=== PATIENT | female | born 1970 | race Caucasian/White ===

== ENCOUNTER 2021-02-16 05:25 | Inpatient (IN) | payer MEDICAID ==
[~2021-02-16] VITALS: Ht 167.6 cm; Wt 87.7 kg
[2021-02-16 05:59] LABS: BASOPHILS % 0.5 % (0.0-2.0); HEMATOCRIT. 36.8 % (36.0-48.0); HEMOGLOBIN. 11.7 g/dL (12.0-16.0); LYMPHOCYTES % 20.9 % (20.0-50.0); MEAN CORPUSCULAR HEMOGLOBIN 27.3 pg (28.0-32.0); MEAN CORPUSCULAR VOLUME 85.9 fL (81.0-99.0); MONOCYTES % 5.2 % (2.0-8.0); NEUTROPHILS % 72.4 % (40.0-76.0); PLATELET 283 x1000/uL (130-400); RED BLOOD CELL COUNT 4.28 mill/uL (4.2-5.4); RED CELL DISTRIBUTION WIDTH 18.5 % (11.6-14.6)
[2021-02-16 06:02] LABS: CHLORIDE 108 mEq/L (98-107)
[2021-02-16] MEDS ORDERED: FUROSEMIDE 40MG/4ML VIAL IVP ONE (07:00)
[2021-02-16] MEDS ORDERED: IOHEXOL-350 100 ML BOTTLE ONE (07:06)
[2021-02-16] MEDS ORDERED: IPRATROPIUM/ALBUTEROL 0.5-3(2.5)MG/3ML NEB NEB PRN (10:45)
[2021-02-16] MEDS ORDERED: GUAIFENESIN 200MG/10ML SUGAR FREE UDC PO PRN (10:45)
[2021-02-16] MEDS ORDERED: HYDROCODONE/ACETAMINOPHEN 5/325MG TABLET PO PRN (10:45)
[2021-02-16] MEDS ORDERED: CLONIDINE 0.1MG TABLET PO PRN (10:45)
[2021-02-16] MEDS ORDERED: NA PHOS,M-B/NA PHOS,DI-BA ENEMA 118ML PR PRN (10:45)
[2021-02-16] MEDS ORDERED: ACETAMINOPHEN 325MG TABLET PO PRN (10:45)
[2021-02-16] MEDS ORDERED: MORPHINE SULFATE 2 MG/ML CPJ (NOT FOR IM USE) IV PRN (10:45)
[2021-02-16] MEDS ORDERED: ONDANSETRON HCL 4MG/2ML INJ IV PRN (10:45)
[2021-02-16] MEDS ORDERED: MAGNESIUM/ALUMINUM HYDROXIDE/SIMETHICONE 30ML UDC PO PRN (10:45)
[2021-02-16] MEDS ORDERED: DOCUSATE SODIUM 100MG CAPSULE PO PRN (10:45)
[2021-02-16] MEDS ORDERED: DIPHENHYDRAMINE 50MG/ML VIAL IV PRN (10:45)
[2021-02-16] MEDS ORDERED: LORAZEPAM 2MG/ML CPJ IV PRN (10:45)
[2021-02-16] MEDS ORDERED: NALOXONE HCL 0.4MG/ML VIAL IV PRN (11:00)
[2021-02-16 13:02] LABS: CHLORIDE 106 mEq/L (98-107)
[2021-02-16] MEDS: ENOXAPARIN 40MG/0.4ML SYR SUBCUT SCH (15:56)
[2021-02-16] MEDS: FUROSEMIDE 40MG/4ML VIAL IV SCH (17:24)
[2021-02-16] MEDS ORDERED: INFLUENZA VACCINE 05/PF 0.5 ML SYRINGE IM ONE (19:00)
[2021-02-16 19:30] VITALS: BP 145/78
[2021-02-16 20:00] VITALS: BP 107/70
[2021-02-16] MEDS ORDERED: PNEUMOCOCCAL 23-VAL P-SAC VAC 0.5 ML IM ONE (21:45)
[2021-02-17] VITALS (7 sets, daily range): BP systolic 114–130; BP diastolic 62–79
[2021-02-17 06:43] LABS: BASOPHILS % 0.8 % (0.0-2.0); EOSINOPHILS % 3.7 % (0.0-5.0); HEMATOCRIT. 37.1 % (36.0-48.0); HEMOGLOBIN. 11.8 g/dL (12.0-16.0); LYMPHOCYTES % 33.8 % (20.0-50.0); MEAN CORPUSCULAR HEMOGLOBIN 27.5 pg (28.0-32.0); MEAN CORPUSCULAR VOLUME 86.2 fL (81.0-99.0); MEAN PLATELET VOLUME 8.3 fl (7.4-10.4); MONOCYTES % 6.9 % (2.0-8.0); NEUTROPHILS % 54.8 % (40.0-76.0); PLATELET 259 x1000/uL (130-400); RED CELL DISTRIBUTION WIDTH 18.3 % (11.6-14.6)
[2021-02-17 07:14] LABS: CHLORIDE 106 mEq/L (98-107)
[2021-02-17] MEDS: FUROSEMIDE 40MG/4ML VIAL IV SCH ×2 (07:19→17:17)
[2021-02-17] MEDS ORDERED: PNEUMOCOCCAL 23-VAL P-SAC VAC 0.5 ML IM ONE (09:00)
[2021-02-17] MEDS ORDERED: POTASSIUM CHLORIDE 20MEQ TABLET SR PO NR (09:15)
[2021-02-17] MEDS: ASPIRIN 81MG EC TABLET PO SCH (09:34)
[2021-02-17] MEDS: ENOXAPARIN 40MG/0.4ML SYR SUBCUT SCH (09:53)
[2021-02-17] MEDS: SPIRONOLACTONE 25MG TABLET PO SCH (13:22)
[2021-02-17 21:21] LABS: METHADONE URINE SCREEN NEGATIVE (NEGATIVE); OPIATES URINE SCREEN NEGATIVE (NEGATIVE)
[2021-02-17 21:22] LABS: *AMPHETAMINES SCREEN URINE NEGATIVE (NEGATIVE); *BARBITURATES SCREEN URINE NEGATIVE (NEGATIVE); *BENZODIAZEPINES SCREEN URINE NEGATIVE (NEGATIVE); *COCAINE SCREEN URINE NEGATIVE (NEGATIVE); CANNABINOID URINE SCREEN PRESUMTIVE POSITIVE (NEGATIVE); PHENCYCLIDINE URINE SCREEN NEGATIVE (NEGATIVE)
[2021-02-18] VITALS: BP 126/80
[2021-02-18 04:00] VITALS: BP 105/55
[2021-02-18] MEDS: FUROSEMIDE 40MG/4ML VIAL IV SCH ×2 (05:23→17:57)
[2021-02-18 07:04] LABS: BASOPHILS % 0.6 % (0.0-2.0); EOSINOPHILS % 4.6 % (0.0-5.0); HEMATOCRIT. 37.9 % (36.0-48.0); HEMOGLOBIN. 12.3 g/dL (12.0-16.0); MEAN CORPUSCULAR HEMOGLOBIN 27.6 pg (28.0-32.0); MEAN CORPUSCULAR VOLUME 85.2 fL (81.0-99.0); MEAN PLATELET VOLUME 8.1 fl (7.4-10.4); MONOCYTES % 6.9 % (2.0-8.0); NEUTROPHILS % 54.9 % (40.0-76.0); PLATELET 264 x1000/uL (130-400); RED BLOOD CELL COUNT 4.44 mill/uL (4.2-5.4); RED CELL DISTRIBUTION WIDTH 18.6 % (11.6-14.6)
[2021-02-18 07:25] LABS: CHLORIDE 101 mEq/L (98-107)
[2021-02-18 08:00] VITALS: BP 104/64
[2021-02-18] MEDS: ENOXAPARIN 40MG/0.4ML SYR SUBCUT SCH (09:40)
[2021-02-18] MEDS: SPIRONOLACTONE 25MG TABLET PO SCH (09:41)
[2021-02-18] MEDS: ASPIRIN 81MG EC TABLET PO SCH (09:41)
[2021-02-18 12:00] VITALS: BP 107/71
[2021-02-18 16:00] VITALS: BP 106/59
[2021-02-18 20:00] VITALS: BP 100/50
[2021-02-19] VITALS: BP 96/50
[2021-02-19 04:00] VITALS: BP 102/57
[2021-02-19 05:25] LABS: CHLORIDE 101 mEq/L (98-107)
[2021-02-19] MEDS: FUROSEMIDE 40MG/4ML VIAL IV SCH (06:02)
[2021-02-19 06:16] LABS: BASOPHILS % 0.7 % (0.0-2.0); EOSINOPHILS % 5.4 % (0.0-5.0); HEMATOCRIT. 40.6 % (36.0-48.0); HEMOGLOBIN. 13.2 g/dL (12.0-16.0); LYMPHOCYTES % 30.3 % (20.0-50.0); MEAN CORPUSCULAR HEMOGLOBIN 27.7 pg (28.0-32.0); MEAN CORPUSCULAR VOLUME 85.1 fL (81.0-99.0); MEAN PLATELET VOLUME 8.1 fl (7.4-10.4); MONOCYTES % 8.3 % (2.0-8.0); NEUTROPHILS % 55.3 % (40.0-76.0); PLATELET 289 x1000/uL (130-400); RED BLOOD CELL COUNT 4.77 mill/uL (4.2-5.4); RED CELL DISTRIBUTION WIDTH 18.2 % (11.6-14.6)
[2021-02-19 08:00] VITALS: BP 158/89
[2021-02-19] MEDS: ENOXAPARIN 40MG/0.4ML SYR SUBCUT SCH (08:30)
[2021-02-19] MEDS: ASPIRIN 81MG EC TABLET PO SCH (08:31)
[2021-02-19] MEDS: SPIRONOLACTONE 25MG TABLET PO SCH (08:31)
[2021-02-19] MEDS ORDERED: LOSARTAN POTASSIUM 50 MG TABLET PO SCH (10:30)
[2021-02-19 12:00] VITALS: BP 100/54
[2021-02-19 14:26] VITALS: BP 105/56
[2021-02-19 16:00] VITALS: BP 122/60
[2021-02-19] MEDS ORDERED: CARVEDILOL 3.125 MG TABLET PO SCH (21:00)
== END 2021-02-19 18:55 | disposition home or self-care (01) | DRG 194 ==
LOC: ER 05:25 → 7EST 08:48 → ENRESERV 16:01
PROVIDERS: ADMIT Internal Medicine; ATTEND Internal Medicine
DX: I13.0 Hypertensive heart and chronic kidney disease with heart failure and stage 1 through stage 4 chronic kidney disease, or unspecified chronic kidney disease (principal); J96.01 Acute respiratory failure with hypoxia; I21.A1 Myocardial infarction type 2; E44.0 Moderate protein-calorie malnutrition; I50.23 Acute on chronic systolic (congestive) heart failure; E87.6 Hypokalemia; F17.210 Nicotine dependence, cigarettes, uncomplicated; I25.10 Atherosclerotic heart disease of native coronary artery without angina pectoris; N18.9 Chronic kidney disease, unspecified; Z20.822 Contact with and (suspected) exposure to COVID-19; I42.9 Cardiomyopathy, unspecified; R74.01 Elevation of levels of liver transaminase levels; R79.89 Other specified abnormal findings of blood chemistry; Z28.3 Underimmunization status; Z68.31 Body mass index [BMI] 31.0-31.9, adult
CPT/HCPCS: 36415; 71045; 71275; 80048; 80053; 80305; 83880; 84484; 85025; 85379; 87426; 90732; 93005; 93306; 99285; J1200; J1650; J1940; J2060; Q9967

== ENCOUNTER 2021-04-20 21:26 | Inpatient (IN) | payer MEDICAID ==
[~2021-04-20] VITALS: Ht 162.6 cm; Wt 92.1 kg
[2021-04-20] MEDS ORDERED: ACETAMINOPHEN 325MG TABLET PO ONE (21:45)
[2021-04-20] MEDS ORDERED: GABAPENTIN 300MG CAPSULE PO ONE (21:45)
[2021-04-20 22:46] LABS: BASOPHILS % 0.5 % (0.0-2.0); EOSINOPHILS % 0.9 % (0.0-5.0); LYMPHOCYTES % 17.2 % (20.0-50.0); MEAN CORPUSCULAR HEMOGLOBIN 25.8 pg (28.0-32.0); MEAN CORPUSCULAR VOLUME 81.8 fL (81.0-99.0); MEAN PLATELET VOLUME 7.8 fl (7.4-10.4); MONOCYTES % 8.6 % (2.0-8.0); NEUTROPHILS % 72.8 % (40.0-76.0); PLATELET 251 x1000/uL (130-400); RED BLOOD CELL COUNT 4.65 mill/uL (4.2-5.4); RED CELL DISTRIBUTION WIDTH 17.9 % (11.6-14.6)
[2021-04-20 22:51] LABS: CHLORIDE 109 mEq/L (98-107)
[2021-04-20] MEDS ORDERED: FUROSEMIDE 40MG/4ML VIAL IVP NR (23:30)
[2021-04-21] MEDS ORDERED: LORAZEPAM 2MG/ML CPJ IV PRN (07:15)
[2021-04-21] MEDS ORDERED: HYDROCODONE/ACETAMINOPHEN 5/325MG TABLET PO PRN (07:15)
[2021-04-21] MEDS ORDERED: DIPHENHYDRAMINE 50MG/ML VIAL IV PRN (07:15)
[2021-04-21] MEDS ORDERED: CLONIDINE 0.1MG TABLET PO PRN (07:15)
[2021-04-21] MEDS ORDERED: HYDRALAZINE 20MG/ML VIAL IV PRN (07:15)
[2021-04-21] MEDS ORDERED: MORPHINE SULFATE 2 MG/ML CPJ (NOT FOR IM USE) IV PRN (07:15)
[2021-04-21] MEDS ORDERED: IPRATROPIUM/ALBUTEROL 0.5-3(2.5)MG/3ML NEB HHN PRN (07:15)
[2021-04-21] MEDS ORDERED: ONDANSETRON HCL 4MG/2ML INJ IV PRN (07:15)
[2021-04-21] MEDS ORDERED: DEXTROSE 50% WATER 50ML SYRINGE IV PRN (07:30)
[2021-04-21] MEDS ORDERED: NALOXONE HCL 0.4MG/ML VIAL IV PRN (08:30)
[2021-04-21] MEDS ORDERED: FUROSEMIDE 40MG/4ML VIAL IV SCH (09:00)
[2021-04-21] MEDS ORDERED: MAGNESIUM/ALUMINUM HYDROXIDE/SIMETHICONE 30ML UDC PO PRN (09:00)
[2021-04-21] MEDS ORDERED: ENOXAPARIN 40MG/0.4ML SYR SUBCUT SCH (09:00)
[2021-04-21] MEDS ORDERED: DOCUSATE SODIUM 100MG CAPSULE PO PRN (09:00)
[2021-04-21 10:16] VITALS: BP 126/98
[2021-04-21 10:19] VITALS: BP 126/98
[2021-04-21] MEDS: FUROSEMIDE 40MG/4ML VIAL IV SCH ×3 (11:00→17:39)
[2021-04-21] MEDS: BLOOD SUGAR DIAGNOSTIC STRIP TEST SCH ×3 (11:50→21:00)
[2021-04-21] MEDS: INSULIN LISPRO 100 UNITS/ML SUBCUT SCH ×3 (11:51→21:00)
[2021-04-21 15:56] LABS: CREATINE KINASE 52 IU/L (26-192)
[2021-04-21 15:57] LABS: CREATINE KINASE MB FRACTION < 1.0 ng/mL (0.5-3.6)
[2021-04-21 16:40] VITALS: BP 113/78
[2021-04-21] MEDS: IPRATROPIUM/ALBUTEROL 0.5-3(2.5)MG/3ML NEB HHN SCH (18:00)
[2021-04-21 20:00] VITALS: BP 115/71
[2021-04-21 22:00] VITALS: BP 99/53
[2021-04-21] MEDS: SODIUM CHLORIDE 0.9% INJ 3ML FLUSH IVF SCH (22:00)
[2021-04-21] MEDS: ENOXAPARIN 30MG/0.3ML SYR SUBCUT SCH (22:12)
[2021-04-21] MEDS: ACETAMINOPHEN 325MG TABLET PO PRN (22:13)
[2021-04-22] VITALS (7 sets, daily range): BP systolic 93–119; BP diastolic 40–83
[2021-04-22 00:35] LABS: CREATINE KINASE 45 IU/L (26-192)
[2021-04-22 00:36] LABS: CREATINE KINASE MB FRACTION < 1.0 ng/mL (0.5-3.6)
[2021-04-22] MEDS: SODIUM CHLORIDE 0.9% INJ 3ML FLUSH IVF SCH ×3 (05:54→21:22)
[2021-04-22] MEDS: FUROSEMIDE 40MG/4ML VIAL IV SCH ×2 (05:54→17:10)
[2021-04-22 06:30] LABS: BASOPHILS % 0.3 % (0.0-2.0); EOSINOPHILS % 2.7 % (0.0-5.0); HEMATOCRIT. 37.6 % (36.0-48.0); HEMOGLOBIN. 12.2 g/dL (12.0-16.0); LYMPHOCYTES % 13.5 % (20.0-50.0); MEAN CORPUSCULAR VOLUME 80.3 fL (81.0-99.0); MONOCYTES % 8.2 % (2.0-8.0); NEUTROPHILS % 75.3 % (40.0-76.0); PLATELET 211 x1000/uL (130-400); RED BLOOD CELL COUNT 4.68 mill/uL (4.2-5.4); RED CELL DISTRIBUTION WIDTH 18.1 % (11.6-14.6)
[2021-04-22 06:38] LABS: CHLORIDE 103 mEq/L (98-107)
[2021-04-22] MEDS: BLOOD SUGAR DIAGNOSTIC STRIP TEST SCH ×4 (07:30→20:58)
[2021-04-22] MEDS: INSULIN LISPRO 100 UNITS/ML SUBCUT SCH ×4 (08:00→20:59)
[2021-04-22] MEDS: IPRATROPIUM/ALBUTEROL 0.5-3(2.5)MG/3ML NEB HHN SCH ×4 (08:31→20:20)
[2021-04-22] MEDS: GUAIFENESIN 200MG/10ML SUGAR FREE UDC PO PRN ×2 (08:53→17:10)
[2021-04-22] MEDS: SPIRONOLACTONE 25MG TABLET PO SCH (08:53)
[2021-04-22] MEDS: ENOXAPARIN 30MG/0.3ML SYR SUBCUT SCH ×2 (08:54→20:58)
[2021-04-22] MEDS ORDERED: FUROSEMIDE 40MG/4ML VIAL IVP SCH (12:30)
[2021-04-22] MEDS: METOPROLOL SUCCINATE 50MG ER TABLET PO SCH (15:43)
[2021-04-22] MEDS: ACETAMINOPHEN 325MG TABLET PO PRN (20:58)
[2021-04-23] VITALS: BP 98/51
[2021-04-23] MEDS: IPRATROPIUM/ALBUTEROL 0.5-3(2.5)MG/3ML NEB HHN SCH ×4 (02:14→23:40)
[2021-04-23 04:00] VITALS: BP 96/60
[2021-04-23] MEDS: FUROSEMIDE 40MG/4ML VIAL IV SCH ×2 (06:00→17:32)
[2021-04-23] MEDS: SODIUM CHLORIDE 0.9% INJ 3ML FLUSH IVF SCH ×3 (06:00→21:05)
[2021-04-23 06:35] LABS: BASOPHILS % 0.4 % (0.0-2.0); MEAN CORPUSCULAR HEMOGLOBIN 25.8 pg (28.0-32.0); MEAN PLATELET VOLUME 7.8 fl (7.4-10.4); MONOCYTES % 11.5 % (2.0-8.0); NEUTROPHILS % 65.1 % (40.0-76.0); PLATELET 221 x1000/uL (130-400); RED BLOOD CELL COUNT 4.63 mill/uL (4.2-5.4); RED CELL DISTRIBUTION WIDTH 17.8 % (11.6-14.6)
[2021-04-23 06:47] LABS: CHLORIDE 102 mEq/L (98-107)
[2021-04-23 08:00] VITALS: BP 118/85
[2021-04-23] MEDS: INSULIN LISPRO 100 UNITS/ML SUBCUT SCH ×4 (08:00→21:00)
[2021-04-23] MEDS: BLOOD SUGAR DIAGNOSTIC STRIP TEST SCH ×4 (08:13→21:00)
[2021-04-23] MEDS: LOSARTAN POTASSIUM 25 MG TABLET PO SCH (09:00)
[2021-04-23] MEDS: SPIRONOLACTONE 25MG TABLET PO SCH (09:13)
[2021-04-23] MEDS: METOPROLOL SUCCINATE 50MG ER TABLET PO SCH (09:13)
[2021-04-23] MEDS: ENOXAPARIN 30MG/0.3ML SYR SUBCUT SCH ×2 (09:13→21:05)
[2021-04-23 12:00] VITALS: BP 124/84
[2021-04-23] MEDS: GUAIFENESIN 200MG/10ML SUGAR FREE UDC PO PRN (12:04)
[2021-04-23 16:00] VITALS: BP 99/60
[2021-04-23 20:00] VITALS: BP 95/67
[2021-04-24] VITALS: BP 86/57
[2021-04-24] MEDS: GUAIFENESIN 200MG/10ML SUGAR FREE UDC PO PRN (00:59)
[2021-04-24 04:00] VITALS: BP 95/60
[2021-04-24 06:08] LABS: BASOPHILS % 0.4 % (0.0-2.0); EOSINOPHILS % 3.2 % (0.0-5.0); HEMATOCRIT. 34.2 % (36.0-48.0); LYMPHOCYTES % 17.7 % (20.0-50.0); MEAN CORPUSCULAR HEMOGLOBIN 25.9 pg (28.0-32.0); MEAN CORPUSCULAR VOLUME 80.2 fL (81.0-99.0); MEAN PLATELET VOLUME 7.7 fl (7.4-10.4); MONOCYTES % 9.7 % (2.0-8.0); PLATELET 221 x1000/uL (130-400); RED BLOOD CELL COUNT 4.26 mill/uL (4.2-5.4); RED CELL DISTRIBUTION WIDTH 17.8 % (11.6-14.6)
[2021-04-24] MEDS: FUROSEMIDE 40MG/4ML VIAL IV SCH (06:11)
[2021-04-24] MEDS: SODIUM CHLORIDE 0.9% INJ 3ML FLUSH IVF SCH (06:11)
[2021-04-24 06:22] LABS: CHLORIDE 99 mEq/L (98-107)
[2021-04-24 08:00] VITALS: BP 100/71
[2021-04-24] MEDS: INSULIN LISPRO 100 UNITS/ML SUBCUT SCH ×2 (08:00→12:46)
[2021-04-24] MEDS: IPRATROPIUM/ALBUTEROL 0.5-3(2.5)MG/3ML NEB HHN SCH (08:06)
[2021-04-24] MEDS: BLOOD SUGAR DIAGNOSTIC STRIP TEST SCH ×2 (08:14→12:46)
[2021-04-24] MEDS: METOPROLOL SUCCINATE 50MG ER TABLET PO SCH (08:15)
[2021-04-24] MEDS: LOSARTAN POTASSIUM 25 MG TABLET PO SCH (08:15)
[2021-04-24] MEDS: ENOXAPARIN 30MG/0.3ML SYR SUBCUT SCH (08:17)
[2021-04-24] MEDS: SPIRONOLACTONE 25MG TABLET PO SCH (08:17)
[2021-04-24 11:51] VITALS: BP 94/65
[2021-04-24 12:35] VITALS: BP 94/65
== END 2021-04-24 14:05 | disposition home or self-care (01) | DRG 194 ==
LOC: ER 21:26 → MICUSO 04-21 01:09 → 5EST 04-21 08:11
PROVIDERS: ADMIT Internal Medicine; ATTEND Internal Medicine
PROC: 5A09357 Assistance with Respiratory Ventilation, Less than 24 Consecutive Hours, Continuous Positive Airway Pressure (ICD-10-PCS; principal; 2021-04-21)
DX: I11.0 Hypertensive heart disease with heart failure (principal); J96.01 Acute respiratory failure with hypoxia; I21.A1 Myocardial infarction type 2; E44.0 Moderate protein-calorie malnutrition; I27.20 Pulmonary hypertension, unspecified; I31.3 Pericardial effusion (noninflammatory); U09.9 Post COVID-19 condition, unspecified; I50.23 Acute on chronic systolic (congestive) heart failure; I42.9 Cardiomyopathy, unspecified; G62.9 Polyneuropathy, unspecified; Z20.822 Contact with and (suspected) exposure to COVID-19; E66.9 Obesity, unspecified; R74.01 Elevation of levels of liver transaminase levels; Z68.34 Body mass index [BMI] 34.0-34.9, adult; Z91.14 Patient's other noncompliance with medication regimen; Z87.891 Personal history of nicotine dependence; Z83.3 Family history of diabetes mellitus; Z82.49 Family history of ischemic heart disease and other diseases of the circulatory system
CPT/HCPCS: 36415; 71045; 80048; 80053; 82550; 82553; 82962; 83880; 84443; 84484; 85025; 87426; 93005; 93306; 93970; 94660; 99291; J1650; J1815; J1940; J2405

== ENCOUNTER 2021-06-07 17:59 | Inpatient (IN) | payer MEDICAID, OTHER ==
[~2021-06-07] VITALS: Ht 162.6 cm; Wt 78.7 kg
[2021-06-07 19:39] LABS: BASOPHILS % 0.6 % (0.0-2.0); EOSINOPHILS % 1.8 % (0.0-5.0); HEMATOCRIT. 34.1 % (36.0-48.0); HEMOGLOBIN. 11.1 g/dL (12.0-16.0); MEAN CORPUSCULAR HEMOGLOBIN 25.6 pg (28.0-32.0); MEAN PLATELET VOLUME 7.2 fl (7.4-10.4); MONOCYTES % 7.5 % (2.0-8.0); NEUTROPHILS % 63.1 % (40.0-76.0); PLATELET 286 x1000/uL (130-400); RED BLOOD CELL COUNT 4.31 mill/uL (4.2-5.4); RED CELL DISTRIBUTION WIDTH 21.5 % (11.6-14.6)
[2021-06-07 19:56] LABS: CHLORIDE 105 mEq/L (98-107)
[2021-06-07] MEDS ORDERED: ASPIRIN 81MG TABLET PO ONE (22:15)
[2021-06-07] MEDS ORDERED: LORAZEPAM 2MG/ML CPJ IV ONE (22:45)
[2021-06-07] MEDS ORDERED: DIPHENHYDRAMINE 50MG/ML VIAL IV ONE (22:45)
[2021-06-07] MEDS ORDERED: GUAIFENESIN 200MG/10ML SUGAR FREE UDC PO PRN (23:00)
[2021-06-07] MEDS ORDERED: MAGNESIUM/ALUMINUM HYDROXIDE/SIMETHICONE 30ML UDC PO PRN (23:00)
[2021-06-07] MEDS ORDERED: IPRATROPIUM/ALBUTEROL 0.5-3(2.5)MG/3ML NEB NEB PRN (23:00)
[2021-06-07] MEDS ORDERED: ONDANSETRON HCL 4MG/2ML INJ IV PRN (23:00)
[2021-06-07] MEDS ORDERED: ACETAMINOPHEN 325MG TABLET PO PRN ×2 (23:00)
[2021-06-07] MEDS ORDERED: KETOROLAC 15MG/ML VIAL IV PRN (23:00)
[2021-06-07] MEDS ORDERED: CLONIDINE 0.1MG TABLET PO PRN (23:00)
[2021-06-07] MEDS ORDERED: NITROGLYCERIN 0.4MG TABLET SL SL PRN (23:00)
[2021-06-07] MEDS ORDERED: DOCUSATE SODIUM 100MG CAPSULE PO PRN (23:00)
[2021-06-07 23:25] LABS: ETHANOL BLOOD < 10 mg/dL
[2021-06-07 23:26] LABS: TOTAL IRON BINDING CAPACITY 360 ug/dL (250-450)
[2021-06-07 23:27] LABS: LDL CHOLESTEROL 88 mg/dL (5-100)
[2021-06-07 23:28] LABS: HDL CHOLESTEROL 17 mg/dL (40-59)
[2021-06-08] MEDS: ENOXAPARIN 40MG/0.4ML SYR SUBCUT SCH ×2 (00:10→20:47)
[2021-06-08 03:50] VITALS: BP_SYST 93; BP_DIAS 59; BP_DIAS 69
[2021-06-08 03:59] LABS: *AMPHETAMINES SCREEN URINE NEGATIVE (NEGATIVE); CANNABINOID URINE SCREEN PRESUMTIVE POSITIVE (NEGATIVE); METHADONE URINE SCREEN NEGATIVE (NEGATIVE); OPIATES URINE SCREEN NEGATIVE (NEGATIVE); PHENCYCLIDINE URINE SCREEN NEGATIVE (NEGATIVE)
[2021-06-08 04:00] LABS: *BARBITURATES SCREEN URINE NEGATIVE (NEGATIVE); *BENZODIAZEPINES SCREEN URINE NEGATIVE (NEGATIVE); *COCAINE SCREEN URINE NEGATIVE (NEGATIVE)
[2021-06-08 04:32] LABS: FOLIC ACID (FOLATE) SERUM 22.6 ng/mL (>5.38)
[2021-06-08] MEDS ORDERED: ASPI-1497 PO (04:55)
[2021-06-08] MEDS ORDERED: FURO40TA5 PO (04:55)
[2021-06-08] MEDS ORDERED: SPIR25TA6 PO (04:55)
[2021-06-08] MEDS ORDERED: LOSA25TA26 PO (04:55)
[2021-06-08] MEDS ORDERED: METO-396 PO (04:55)
[2021-06-08] MEDS: CARVEDILOL 3.125 MG TABLET PO SCH ×2 (06:00→18:00)
[2021-06-08 06:24] LABS: BASOPHILS % 0.4 % (0.0-2.0); EOSINOPHILS % 2.7 % (0.0-5.0); HEMATOCRIT. 32.3 % (36.0-48.0); MEAN CORPUSCULAR HEMOGLOBIN 26.8 pg (28.0-32.0); MEAN CORPUSCULAR VOLUME 78.7 fL (81.0-99.0); MEAN PLATELET VOLUME 7.6 fl (7.4-10.4); MONOCYTES % 7.1 % (2.0-8.0); NEUTROPHILS % 55.8 % (40.0-76.0); PLATELET 263 x1000/uL (130-400); RED BLOOD CELL COUNT 4.11 mill/uL (4.2-5.4); RED CELL DISTRIBUTION WIDTH 20.6 % (11.6-14.6)
[2021-06-08 06:39] LABS: CHLORIDE 106 mEq/L (98-107)
[2021-06-08 06:45] LABS: PHOSPHORUS 2.9 mg/dL (2.5-4.9)
[2021-06-08 06:50] LABS: CREATINE KINASE 38 IU/L (26-192)
[2021-06-08 06:53] LABS: CREATINE KINASE MB FRACTION 1.2 ng/mL (0.5-3.6)
[2021-06-08 08:00] VITALS: BP 123/85
[2021-06-08] MEDS: FUROSEMIDE 40MG/4ML VIAL IVP SCH ×2 (08:16→20:47)
[2021-06-08] MEDS: ASPIRIN 325MG EC TABLET PO SCH (08:17)
[2021-06-08] MEDS: SPIRONOLACTONE 25MG TABLET PO SCH ×2 (08:17→20:48)
[2021-06-08] MEDS: FAMOTIDINE 20MG TABLET PO SCH ×2 (08:17→20:48)
[2021-06-08 11:48] VITALS: BP 123/84
[2021-06-08] MEDS ORDERED: CEFTRIAXONE 1 G PREMIX 50 ML IV SCH (15:15)
[2021-06-08] MEDS ORDERED: ALBUTEROL 6.7GM HFA INHALER ORI PRN (15:30)
[2021-06-08 15:45] VITALS: BP 109/68
[2021-06-08 15:59] LABS: CREATINE KINASE 39 IU/L (26-192)
[2021-06-08 16:00] LABS: CREATINE KINASE MB FRACTION < 1.0 ng/mL (0.5-3.6)
[2021-06-08] MEDS: CEFTRIAXONE 1,000 MG in DEXTROSE 5% WATER 50 ML IV SCH (16:47)
[2021-06-08] MEDS: AZITHROMYCIN 500 MG in DEXT 5% WATER 250 ML IV SCH (16:48)
[2021-06-08 20:00] VITALS: BP 95/67
[2021-06-08] MEDS: ASCORBIC ACID 500 MG TABLET PO SCH (20:48)
[2021-06-09] VITALS: BP 103/69
[2021-06-09 04:00] VITALS: BP 116/76
[2021-06-09] MEDS: CARVEDILOL 3.125 MG TABLET PO SCH ×2 (05:53→17:29)
[2021-06-09 07:37] VITALS: BP 102/69
[2021-06-09] MEDS: ASCORBIC ACID 500 MG TABLET PO SCH ×2 (08:56→21:03)
[2021-06-09] MEDS: ASPIRIN 325MG EC TABLET PO SCH (08:56)
[2021-06-09] MEDS: SPIRONOLACTONE 25MG TABLET PO SCH ×2 (08:56→21:03)
[2021-06-09] MEDS: FUROSEMIDE 40MG/4ML VIAL IVP SCH ×2 (08:56→21:03)
[2021-06-09] MEDS: FAMOTIDINE 20MG TABLET PO SCH ×2 (08:56→21:03)
[2021-06-09] MEDS: AZITHROMYCIN 500 MG in DEXT 5% WATER 250 ML IV SCH (08:56)
[2021-06-09] MEDS: ZINC SULFATE 220 MG ( 50 ) CAPSULE PO SCH (08:57)
[2021-06-09] MEDS ORDERED: DEXTROSE 50% WATER 50ML SYRINGE IV PRN (09:30)
[2021-06-09] MEDS: DEXAMETHASONE 4MG TABLET PO SCH (09:41)
[2021-06-09] MEDS: BLOOD SUGAR DIAGNOSTIC STRIP TEST SCH ×3 (11:17→21:04)
[2021-06-09] MEDS: INSULIN LISPRO 100 UNITS/ML SUBCUT SCH ×3 (11:18→21:04)
[2021-06-09 11:41] VITALS: BP 91/63
[2021-06-09 16:00] VITALS: BP 96/58
[2021-06-09] MEDS: CEFTRIAXONE 1,000 MG in DEXTROSE 5% WATER 50 ML IV SCH (17:25)
[2021-06-09 20:00] VITALS: BP 96/53
[2021-06-09] MEDS: ENOXAPARIN 40MG/0.4ML SYR SUBCUT SCH (21:03)
[2021-06-10] VITALS: BP 96/46
[2021-06-10] MEDS: ZOLPIDEM TARTRATE 5MG TABLET PO PRN (02:31)
[2021-06-10 04:00] VITALS: BP 110/64
[2021-06-10] MEDS: CARVEDILOL 3.125 MG TABLET PO SCH ×2 (05:58→17:01)
[2021-06-10] MEDS: BLOOD SUGAR DIAGNOSTIC STRIP TEST SCH ×4 (06:16→21:19)
[2021-06-10] MEDS: INSULIN LISPRO 100 UNITS/ML SUBCUT SCH ×4 (07:10→21:00)
[2021-06-10 08:00] VITALS: BP 110/76
[2021-06-10] MEDS: AZITHROMYCIN 500 MG in DEXT 5% WATER 250 ML IV SCH (08:19)
[2021-06-10] MEDS: DEXAMETHASONE 4MG TABLET PO SCH (08:20)
[2021-06-10] MEDS: FAMOTIDINE 20MG TABLET PO SCH ×2 (08:20→21:22)
[2021-06-10] MEDS: SPIRONOLACTONE 25MG TABLET PO SCH ×2 (08:20→21:21)
[2021-06-10] MEDS: ASPIRIN 325MG EC TABLET PO SCH (08:20)
[2021-06-10] MEDS: ASCORBIC ACID 500 MG TABLET PO SCH ×2 (08:20→21:20)
[2021-06-10] MEDS: ZINC SULFATE 220 MG ( 50 ) CAPSULE PO SCH (08:20)
[2021-06-10] MEDS: FUROSEMIDE 40MG/4ML VIAL IVP SCH ×2 (08:20→21:22)
[2021-06-10 12:00] VITALS: BP 91/67
[2021-06-10 16:00] VITALS: BP 106/70
[2021-06-10] MEDS: CEFTRIAXONE 1,000 MG in DEXTROSE 5% WATER 50 ML IV SCH (16:34)
[2021-06-10 20:00] VITALS: BP 100/65
[2021-06-10] MEDS: ENOXAPARIN 40MG/0.4ML SYR SUBCUT SCH (21:22)
[2021-06-11] VITALS: BP 111/66
[2021-06-11 04:00] VITALS: BP 106/63
[2021-06-11] MEDS: CARVEDILOL 3.125 MG TABLET PO SCH ×2 (06:00→17:14)
[2021-06-11] MEDS: INSULIN LISPRO 100 UNITS/ML SUBCUT SCH ×4 (07:33→21:00)
[2021-06-11] MEDS: BLOOD SUGAR DIAGNOSTIC STRIP TEST SCH ×4 (07:33→20:49)
[2021-06-11 07:52] VITALS: BP 116/68
[2021-06-11] MEDS: ASCORBIC ACID 500 MG TABLET PO SCH ×2 (08:09→20:48)
[2021-06-11] MEDS: ZINC SULFATE 220 MG ( 50 ) CAPSULE PO SCH (08:09)
[2021-06-11] MEDS: DEXAMETHASONE 6MG TABLET PO SCH (08:10)
[2021-06-11] MEDS: FAMOTIDINE 20MG TABLET PO SCH ×2 (08:10→20:48)
[2021-06-11] MEDS: ASPIRIN 325MG EC TABLET PO SCH (08:10)
[2021-06-11] MEDS: SPIRONOLACTONE 25MG TABLET PO SCH ×2 (08:10→20:48)
[2021-06-11] MEDS: FUROSEMIDE 40MG/4ML VIAL IVP SCH ×2 (08:11→20:49)
[2021-06-11] MEDS: AZITHROMYCIN 500 MG in DEXT 5% WATER 250 ML IV SCH (08:11)
[2021-06-11 11:51] VITALS: BP 108/62
[2021-06-11 15:56] VITALS: BP 111/72
[2021-06-11] MEDS: CEFTRIAXONE 1,000 MG in DEXTROSE 5% WATER 50 ML IV SCH (17:14)
[2021-06-11 20:00] VITALS: BP 106/72
[2021-06-11] MEDS: ENOXAPARIN 40MG/0.4ML SYR SUBCUT SCH (20:49)
[2021-06-11] MEDS: ZOLPIDEM TARTRATE 5MG TABLET PO PRN (22:26)
[2021-06-12] VITALS: BP 96/49
[2021-06-12 04:00] VITALS: BP 118/68
[2021-06-12] MEDS: BLOOD SUGAR DIAGNOSTIC STRIP TEST SCH ×4 (06:29→21:00)
[2021-06-12] MEDS: CARVEDILOL 3.125 MG TABLET PO SCH ×2 (06:29→17:27)
[2021-06-12] MEDS: INSULIN LISPRO 100 UNITS/ML SUBCUT SCH ×4 (06:29→21:00)
[2021-06-12 08:00] VITALS: BP 113/63
[2021-06-12] MEDS: FAMOTIDINE 20MG TABLET PO SCH ×2 (08:23→21:57)
[2021-06-12] MEDS: FUROSEMIDE 40MG/4ML VIAL IVP SCH (08:23)
[2021-06-12] MEDS: DEXAMETHASONE 6MG TABLET PO SCH (08:23)
[2021-06-12] MEDS: ASPIRIN 325MG EC TABLET PO SCH (08:23)
[2021-06-12] MEDS: SPIRONOLACTONE 25MG TABLET PO SCH ×2 (08:23→21:57)
[2021-06-12] MEDS: ZINC SULFATE 220 MG ( 50 ) CAPSULE PO SCH (08:23)
[2021-06-12] MEDS: ASCORBIC ACID 500 MG TABLET PO SCH ×2 (08:23→21:57)
[2021-06-12] MEDS: AZITHROMYCIN 500 MG in DEXT 5% WATER 250 ML IV SCH (08:27)
[2021-06-12 12:00] VITALS: BP 99/66
[2021-06-12 16:00] VITALS: BP 115/56
[2021-06-12] MEDS: CEFTRIAXONE 1,000 MG in DEXTROSE 5% WATER 50 ML IV SCH (16:24)
[2021-06-12 20:00] VITALS: BP 107/68
[2021-06-12] MEDS: ZOLPIDEM TARTRATE 5MG TABLET PO PRN (21:57)
[2021-06-12] MEDS: ENOXAPARIN 40MG/0.4ML SYR SUBCUT SCH (21:58)
[2021-06-13 04:00] VITALS: BP 96/56
[2021-06-13] MEDS: CARVEDILOL 3.125 MG TABLET PO SCH ×2 (05:35→17:46)
[2021-06-13] MEDS: BLOOD SUGAR DIAGNOSTIC STRIP TEST SCH ×4 (05:58→20:06)
[2021-06-13] MEDS: INSULIN LISPRO 100 UNITS/ML SUBCUT SCH ×5 (06:01→20:06)
[2021-06-13 07:51] VITALS: BP 115/76
[2021-06-13] MEDS: DEXAMETHASONE 6MG TABLET PO SCH (08:14)
[2021-06-13] MEDS: FAMOTIDINE 20MG TABLET PO SCH ×2 (08:14→20:23)
[2021-06-13] MEDS: ASCORBIC ACID 500 MG TABLET PO SCH ×2 (08:14→20:23)
[2021-06-13] MEDS: ASPIRIN 325MG EC TABLET PO SCH (08:14)
[2021-06-13] MEDS: FUROSEMIDE 20MG/2ML VIAL IVP SCH ×2 (08:14→20:23)
[2021-06-13] MEDS: ZINC SULFATE 220 MG ( 50 ) CAPSULE PO SCH (08:19)
[2021-06-13] MEDS: SPIRONOLACTONE 25MG TABLET PO SCH ×2 (08:19→20:25)
[2021-06-13 12:00] VITALS: BP 108/66
[2021-06-13 15:56] VITALS: BP 95/63
[2021-06-13 20:00] VITALS: BP 101/61
[2021-06-13] MEDS: ENOXAPARIN 40MG/0.4ML SYR SUBCUT SCH (20:23)
[2021-06-14] VITALS (7 sets, daily range): BP systolic 96–122; BP diastolic 51–74
[2021-06-14] MEDS: CARVEDILOL 3.125 MG TABLET PO SCH ×2 (05:11→17:23)
[2021-06-14] MEDS: BLOOD SUGAR DIAGNOSTIC STRIP TEST SCH ×4 (07:40→20:45)
[2021-06-14] MEDS: INSULIN LISPRO 100 UNITS/ML SUBCUT SCH ×4 (08:10→20:45)
[2021-06-14] MEDS: FAMOTIDINE 20MG TABLET PO SCH ×2 (08:17→21:22)
[2021-06-14] MEDS: ASCORBIC ACID 500 MG TABLET PO SCH ×2 (08:17→21:22)
[2021-06-14] MEDS: ZINC SULFATE 220 MG ( 50 ) CAPSULE PO SCH (08:17)
[2021-06-14] MEDS: DEXAMETHASONE 6MG TABLET PO SCH (08:17)
[2021-06-14] MEDS: ASPIRIN 325MG EC TABLET PO SCH (08:18)
[2021-06-14] MEDS: FUROSEMIDE 20MG/2ML VIAL IVP SCH ×2 (08:18→21:22)
[2021-06-14] MEDS: SPIRONOLACTONE 25MG TABLET PO SCH ×2 (08:18→21:00)
[2021-06-14] MEDS: ENOXAPARIN 40MG/0.4ML SYR SUBCUT SCH (21:22)
[2021-06-15 04:20] VITALS: BP 114/78
[2021-06-15] MEDS: CARVEDILOL 3.125 MG TABLET PO SCH ×2 (05:29→17:37)
[2021-06-15] MEDS: INSULIN LISPRO 100 UNITS/ML SUBCUT SCH ×4 (06:44→20:21)
[2021-06-15] MEDS: BLOOD SUGAR DIAGNOSTIC STRIP TEST SCH ×4 (06:44→20:21)
[2021-06-15 08:00] VITALS: BP 110/69
[2021-06-15] MEDS: SPIRONOLACTONE 25MG TABLET PO SCH ×2 (08:20→20:20)
[2021-06-15] MEDS: ASCORBIC ACID 500 MG TABLET PO SCH ×2 (08:20→20:14)
[2021-06-15] MEDS: FAMOTIDINE 20MG TABLET PO SCH ×2 (08:20→20:14)
[2021-06-15] MEDS: ASPIRIN 325MG EC TABLET PO SCH (08:20)
[2021-06-15] MEDS: DEXAMETHASONE 6MG TABLET PO SCH (08:21)
[2021-06-15] MEDS: ZINC SULFATE 220 MG ( 50 ) CAPSULE PO SCH (08:21)
[2021-06-15] MEDS: FUROSEMIDE 20MG/2ML VIAL IVP SCH ×2 (08:21→20:20)
[2021-06-15 12:00] VITALS: BP 105/70
[2021-06-15 16:00] VITALS: BP 117/70
[2021-06-15 20:00] VITALS: BP 112/56
[2021-06-15] MEDS: ENOXAPARIN 40MG/0.4ML SYR SUBCUT SCH (20:21)
[2021-06-16] VITALS: BP 101/58
[2021-06-16 04:00] VITALS: BP 103/61
[2021-06-16] MEDS: CARVEDILOL 3.125 MG TABLET PO SCH ×2 (06:00→17:20)
[2021-06-16] MEDS: BLOOD SUGAR DIAGNOSTIC STRIP TEST SCH ×4 (06:23→20:58)
[2021-06-16 08:00] VITALS: BP 97/62
[2021-06-16] MEDS: FUROSEMIDE 20MG/2ML VIAL IVP SCH ×2 (08:06→20:57)
[2021-06-16] MEDS: DEXAMETHASONE 6MG TABLET PO SCH (08:06)
[2021-06-16] MEDS: ZINC SULFATE 220 MG ( 50 ) CAPSULE PO SCH (08:06)
[2021-06-16] MEDS: ASPIRIN 325MG EC TABLET PO SCH (08:06)
[2021-06-16] MEDS: FAMOTIDINE 20MG TABLET PO SCH ×2 (08:06→20:58)
[2021-06-16] MEDS: ASCORBIC ACID 500 MG TABLET PO SCH ×2 (08:06→20:57)
[2021-06-16] MEDS: SPIRONOLACTONE 25MG TABLET PO SCH ×2 (08:06→20:58)
[2021-06-16] MEDS: INSULIN LISPRO 100 UNITS/ML SUBCUT SCH ×4 (08:07→20:58)
[2021-06-16 12:00] VITALS: BP 115/76
[2021-06-16 16:00] VITALS: BP 126/86
[2021-06-16 20:00] VITALS: BP 114/69
[2021-06-16] MEDS: ENOXAPARIN 40MG/0.4ML SYR SUBCUT SCH (20:58)
[2021-06-17] VITALS (7 sets, daily range): BP systolic 101–115; BP diastolic 63–77
[2021-06-17] MEDS: CARVEDILOL 3.125 MG TABLET PO SCH ×2 (06:00→17:48)
[2021-06-17] MEDS: BLOOD SUGAR DIAGNOSTIC STRIP TEST SCH ×4 (07:40→20:34)
[2021-06-17] MEDS: ZINC SULFATE 220 MG ( 50 ) CAPSULE PO SCH (08:39)
[2021-06-17] MEDS: ASPIRIN 325MG EC TABLET PO SCH (08:39)
[2021-06-17] MEDS: DEXAMETHASONE 6MG TABLET PO SCH (08:39)
[2021-06-17] MEDS: ASCORBIC ACID 500 MG TABLET PO SCH ×2 (08:40→20:34)
[2021-06-17] MEDS: SPIRONOLACTONE 25MG TABLET PO SCH ×2 (08:42→20:34)
[2021-06-17] MEDS: FAMOTIDINE 20MG TABLET PO SCH ×2 (08:43→20:34)
[2021-06-17] MEDS: FUROSEMIDE 20MG/2ML VIAL IVP SCH ×2 (08:43→20:33)
[2021-06-17] MEDS: INSULIN LISPRO 100 UNITS/ML SUBCUT SCH ×4 (08:44→21:00)
[2021-06-17] MEDS: ENOXAPARIN 40MG/0.4ML SYR SUBCUT SCH (20:33)
[2021-06-18] VITALS: BP 108/64
[2021-06-18 04:00] VITALS: BP 92/59
[2021-06-18] MEDS: CARVEDILOL 3.125 MG TABLET PO SCH (06:00)
[2021-06-18] MEDS: BLOOD SUGAR DIAGNOSTIC STRIP TEST SCH ×2 (06:41→11:40)
[2021-06-18] MEDS: INSULIN LISPRO 100 UNITS/ML SUBCUT SCH ×2 (07:10→12:12)
[2021-06-18 08:00] VITALS: BP 97/62
[2021-06-18] MEDS: ASPIRIN 325MG EC TABLET PO SCH (08:16)
[2021-06-18] MEDS: ASCORBIC ACID 500 MG TABLET PO SCH (08:16)
[2021-06-18] MEDS: FAMOTIDINE 20MG TABLET PO SCH (08:16)
[2021-06-18] MEDS: DEXAMETHASONE 6MG TABLET PO SCH (08:17)
[2021-06-18] MEDS: ZINC SULFATE 220 MG ( 50 ) CAPSULE PO SCH (08:17)
[2021-06-18] MEDS: FUROSEMIDE 20MG/2ML VIAL IVP SCH (08:17)
[2021-06-18] MEDS: SPIRONOLACTONE 25MG TABLET PO SCH (08:17)
[2021-06-18 10:45] VITALS: BP 105/61
[2021-06-18 12:00] VITALS: BP 128/67
== END 2021-06-18 13:10 | disposition home or self-care (01) | DRG 720 ==
LOC: ER 17:59 → 6WST 22:41 → ENRESERV 23:43 → MICUSO 06-08 03:14 → 7EST 06-08 04:44 → 7WST 06-10 20:19 → 7EST 06-11 13:50 → 7WST 06-13 07:55
PROVIDERS: ADMIT Internal Medicine; ATTEND Internal Medicine
DX: A41.89 Other specified sepsis (principal); J96.01 Acute respiratory failure with hypoxia; J12.82 Pneumonia due to coronavirus disease 2019; E44.0 Moderate protein-calorie malnutrition; U07.1 COVID-19; I50.43 Acute on chronic combined systolic (congestive) and diastolic (congestive) heart failure; I42.9 Cardiomyopathy, unspecified; I27.20 Pulmonary hypertension, unspecified; D50.9 Iron deficiency anemia, unspecified; R74.01 Elevation of levels of liver transaminase levels; I11.0 Hypertensive heart disease with heart failure; Z78.9 Other specified health status; Z68.29 Body mass index [BMI] 29.0-29.9, adult
CPT/HCPCS: 36415; 71045; 80048; 80053; 80061; 80076; 80305; 80320; 82550; 82553; 82607; 82746; 82962; 83036; 83540; 83550; 83735; 83880; 84100; 84443; 84484; 85025; 87426; 93005; 93970; 99291; C1893; J0456; J0696; J1200; J1650; J1815; J1940; J2060; J2405; J7040; J7060; J8540; G0480

== ENCOUNTER 2022-03-09 09:20 | Emergency (ER) | payer MEDICAID ==
[~2022-03-09] VITALS: Ht 167.6 cm; Wt 82.0 kg
[~2022-03-09 09:20] MED LIST: ASPI-1497 PO; FURO40TA5 PO; LOSA25TA26 PO; METO-396 PO; SPIR25TA6 PO
[2022-03-09] MEDS ORDERED: ACETAMINOPHEN 325MG TABLET PO STA (09:27)
[2022-03-09 09:29] VITALS: BP 108/68
[2022-03-09] MEDS ORDERED: ACETAMINOPHEN 325MG TABLET PO NR (11:30)
[2022-03-09 11:35] LABS: BASOPHILS % 0.5 % (0.0-2.0); EOSINOPHILS % 2.2 % (0.0-5.0); HEMATOCRIT. 37.4 % (36.0-48.0); HEMOGLOBIN. 12.2 g/dL (12.0-16.0); LYMPHOCYTES % 19.9 % (20.0-50.0); MEAN CORPUSCULAR HEMOGLOBIN 28.1 pg (28.0-32.0); MEAN CORPUSCULAR VOLUME 85.6 fL (81.0-99.0); MEAN PLATELET VOLUME 6.9 fl (7.4-10.4); MONOCYTES % 7.7 % (2.0-8.0); NEUTROPHILS % 69.7 % (40.0-76.0); PLATELET 341 x1000/uL (130-400); RED BLOOD CELL COUNT 4.36 mill/uL (4.2-5.4); RED CELL DISTRIBUTION WIDTH 18.3 % (11.6-14.6)
[2022-03-09 11:44] LABS: CHLORIDE 106 mEq/L (98-107)
[2022-03-09] MEDS ORDERED: MELO-105 MT (12:11)
== END 2022-03-09 12:40 | disposition home or self-care (01) ==
LOC: ER 09:46
DX: M79.10 Myalgia, unspecified site (principal); I11.0 Hypertensive heart disease with heart failure; I50.9 Heart failure, unspecified; Z79.82 Long term (current) use of aspirin
CPT/HCPCS: 36415; 80053; 85025; 99283